=== PATIENT | male | born 1985 | race Caucasian/White ===

== ENCOUNTER 2018-06-04 16:47 | Emergency (ER) | payer BC ==
[~2018-06-04] VITALS: Ht 180.3 cm; Wt 71.9 kg
[2018-06-04 17:28] LABS: HEMATOCRIT 48.4 % (38.0-50.0); HEMOGLOBIN 17.3 G/DL (12.5-16.6); MCH 28.9 PG (29.0-34.0); MCHC 35.7 G/DL (30.0-36.0); MCV 80.9 FL (86-99); PLATELET COUNT 329 K/uL (156-360); RBC DIS.WIDTH-CV 12.6 % (11.8-14.6); RBC DIS.WIDTH-SD 36.2 % (39-53); RED BLOOD COUNT 5.98 M/uL (4.00-5.50); WHITE BLOOD COUNT 9.3 K/uL (4.1-10.2)
[2018-06-04 17:33] LABS: ALBUMIN 4.5 g/dL (3.2-4.8); CHLORIDE 107 mEq/L (99-109); POTASSIUM 3.9 mEq/L (3.7-5.4); SODIUM 140 mEq/L (136-147)
[2018-06-04 17:35] LABS: GLUCOSE 126 mg/dL (70-99); TOTAL PROTEIN 7.7 g/dL (6.4-8.3)
[2018-06-04 17:37] LABS: TOTAL BILIRUBIN 1.2 mg/dL (0.0-1.0)
[2018-06-04 17:39] LABS: ALKALINE PHOSPHATASE 71 IU/L (3-129); CREATININE 0.9 mg/dL (0.6-1.3); GFR ESTIMATE (CALCULATED) > 59 mL/min/ (58.99-99999)
[2018-06-04 17:40] LABS: AST (GOT) 24 IU/L (2-34); UREA NITROGEN (BUN) 17 mg/dL (9-23)
[2018-06-04 17:42] LABS: ALT (GPT) 41 IU/L (3-49); LIPASE 43 U/L (1.0-51.0)
[2018-06-04] MEDS ORDERED: BENTYL10 MG PO (17:48)
[2018-06-04] MEDS ORDERED: ZOFRAN ODT4 MG PO (17:48)
[2018-06-04] MEDS ORDERED: PRILOSEC20 MG PO (18:31)
[2018-06-04 19:05] VITALS: BP 134/89
== END 2018-06-04 19:07 | disposition home or self-care (01) ==
LOC: EME 16:47
PROVIDERS: Nurse Practitioner Family
DX: F11.23 Opioid dependence with withdrawal (principal); B19.20 Unspecified viral hepatitis C without hepatic coma; Z87.891 Personal history of nicotine dependence
CPT/HCPCS: 74177; 80053; 83690; 85027; 99281; 99284; J2405; J7030